=== PATIENT | male | born 1945 | race Caucasian/White ===

== ENCOUNTER 2018-04-17 11:41 | Emergency (ER) | payer OTHER ==
[~2018-04-17] VITALS: Ht 185.4 cm; Wt 68.0 kg
[~2018-04-17 11:41] MED LIST: ACETAMINOPHEN325 M1 PO; ACIDOPHILUS1 EACH PO; ADULT LOW DOSE81 MG PO; ADULT LOW DOSE81 MG PT; ADVAIR 250-501 EACH INH; AMOXICILLIN; ASPIRIN; AUGMENTIN 875875 MG PT; AVADART; AVODART; AVODART0.5 MG PO; AVODART0.5 MG PT; AZITHROMYCIN 2250 MG PO; CHLORPROMAZINE10 M1 PO; CIALIS5 MG PO; CIPRO500 MG PO; CLOPIDOGREL; CLOPIDOGREL PT; FISH OIL 1,0001 EAC5 PO; FISH OIL 1,0001 EAC5 PT; FISHOIL; FLOMAX0.4 MG PO; FLONASE 0.05%50 MCG NASAL; FLORANEX PACKET1 GM; FLOVENT HFA 1110 MCG IH; HYDROCODONE-AP1 EAC6 PO; IBUPROFEN 400400 M2 PO; LEVAQUIN 500 M500 M2 PO; LIDODERM 5%1 PATC1 TRANSDERM; LIPITOR 20 MG T20 M1 PO; LISINOPRIL PO; LISINOPRIL40 MG PO; LOPRESSOR; LOPRESSOR 12.12.5 MG PO; LOPRESSOR PT; MELATONIN1 MG PO; METFORMIN HCL500 MG PO; METOCLOPRAMIDE; MIRALAX255 GM PO; NASAL SPRAY30 ML INH; NEURONTIN 300300 M1 PO; NITROGLYCERIN0.4 MG SUBLING; NITROSTAT0.4 MG SL; NORVASC5 MG PO; PEPCID20 MG PO; PIOGLITAZONE15 MG PO; PLAVIX 75 MG TA75 M1 PO; PLAVIX 75 MG TA75 MG PO; PREDNISONE 20 M20 MG PO; PYRIDIUM200 MG PO; RAPAFLO4 MG PO; RAPAFLO8 MG PO; SIMVASTATIN40 MG PO; SINGULAIR; SINGULAIR 10 MG10 M1 PO; SINGULAIR 10 MG10 M1 PT; THORAZINE; ULTRAM 50MG TAB50 MG PO; VALIUM5 MG PO; VALTREX1000 MG PO; VESICARE 5 MG TA5 M1 PO; VYTORIN 10-401 EACH PO; ZETIA10 MG PO; ZOCOR; ZOCOR PO; ZOCOR80 MG PT; ZOFRAN PT; [UNRECOGNIZED DRUG - OTHER]
[2018-04-17] MEDS ORDERED: NORCO 5-325 TA1 EACH PO (12:06)
[2018-04-17] MEDS ORDERED: PREVNAR 13 SYR0.5 ML IM (12:06)
[2018-04-17] MEDS ORDERED: ZOCOR20 MG PO (12:06)
[2018-04-17] MEDS ORDERED: IBUPROFEN 800800 M1 PO (12:06)
[2018-04-17] MEDS ORDERED: DETROL1 MG PO (12:08)
[2018-04-17] MEDS ORDERED: TRAMADOL 50 MG50 MG PO (12:08)
[2018-04-17] MEDS ORDERED: ZETIA10 MG PO (12:08)
[2018-04-17] MEDS ORDERED: EMERGEN-C 500500 MG PO (12:09)
[2018-04-17] MEDS ORDERED: ASPIR 8181 MG PO (12:09)
[2018-04-17] MEDS ORDERED: ZINC30 M1 PO (12:10)
[2018-04-17] MEDS ORDERED: GREEN TEA250 MG PO (12:10)
[2018-04-17] MEDS ORDERED: COQ-10100 MG PO (12:10)
[2018-04-17] MEDS ORDERED: SAW PALMETTO 1160 MG PO (12:10)
[2018-04-17] MEDS ORDERED: HYDROCODON-ACE1 EAC7 PO (12:33)
[2018-04-17] MEDS ORDERED: PREDNISONE 2.52.5 M1 PO (12:33)
[2018-04-17 12:45] VITALS: BP 119/72
== END 2018-04-17 12:45 | disposition home or self-care (01) ==
LOC: M.ERS 11:41
DX: M13.862 Other specified arthritis, left knee (principal); M13.861 Other specified arthritis, right knee; Z85.840 Personal history of malignant neoplasm of eye; Z90.49 Acquired absence of other specified parts of digestive tract; Z95.5 Presence of coronary angioplasty implant and graft; Z88.5 Allergy status to narcotic agent

== ENCOUNTER 2018-06-02 16:28 | Inpatient (IN) | payer OTHER ==
[~2018-06-02] VITALS: Ht 182.9 cm; Wt 68.5 kg
[~2018-06-02 16:28] MED LIST changes: +ASPIR 8181 MG PO; +COQ-10100 MG PO; +DETROL1 MG PO; +EMERGEN-C 500500 MG PO; +GREEN TEA250 MG PO; +HYDROCODON-ACE1 EAC7 PO; +IBUPROFEN 800800 M1 PO; +NORCO 5-325 TA1 EACH PO; +PREDNISONE 2.52.5 M1 PO; +PREVNAR 13 SYR0.5 ML IM; +SAW PALMETTO 1160 MG PO; +TRAMADOL 50 MG50 MG PO; +ZINC30 M1 PO; +ZOCOR20 MG PO
[2018-06-02 16:38] VITALS: BP 170/78
[2018-06-02] MEDS ORDERED: PROZAC20 MG PO (16:43)
[2018-06-02] MEDS ORDERED: ONDANSETRON HCL4 M2 PO (16:44)
[2018-06-02] MEDS ORDERED: SINGULAIR 10 MG10 M1 PO (16:46)
[2018-06-02] MEDS ORDERED: NABUMETONE 750750 M1 PO (16:46)
[2018-06-02] MEDS ORDERED: ASPIR 8181 MG PO (16:50)
[2018-06-02 17:30] LABS: HEMATOCRIT 42.1 % (42.0-52.0); HEMOGLOBIN 14.3 gm/dL (14.0-18.0); MCH 31.3 pg (26.0-34.0); MCV 92.1 fL (80.0-100.0); NUCLEATED RBCS 0 /100WBC; PLATELET COUNT* 197 thou/uL (150-400); RBC 4.57 mil/uL (4.50-6.00); RDW-CV 13.8 % (10.5-14.5)
[2018-06-02 17:54] LABS: ALBUMIN 3.5 g/dL (3.4-5.0); ALKALINE PHOSPHATASE 94 U/L (46-116); ANION GAP 10 mmol/L (7-16); BUN 15 mg/dL (7-18); CALCIUM 8.7 mg/dL (8.5-10.1); CHLORIDE 105 mmol/L (98-107); CO2 23 mmol/L (21-32); CREATININE 1.2 mg/dL (0.6-1.3); GLUCOSE 89 mg/dL (70-99); LIPASE 330 U/L (73-393); NT-PRO BRAIN NAT PEPTIDE 188 pg/mL (<300); POTASSIUM 4.1 mmol/L (3.5-5.1); SGOT 27 U/L (15-37); SGPT 32 U/L (30-65); SODIUM 138 mmol/L (136-145); TOTAL BILIRUBIN 0.3 mg/dL (<0.1-1.0); TOTAL PROTEIN 6.5 g/dL (6.4-8.2); TROPONIN-I LEVEL <0.06 ng/mL (<0.06)
[2018-06-02 17:59] LABS: ABSOLUTE BASOPHILS 0.3 thou/uL (0.0-0.2); ABSOLUTE EOSINOPHILS 0.9 thou/uL (0.0-0.7); ABSOLUTE LYMPHOCYTES 1.5 thou/uL (0.8-5.3); ABSOLUTE MONOCYTES 0.2 thou/uL (0.0-1.2); ABSOLUTE NEUTROPHILS 2.2 thou/uL (1.6-8.1); PLATELET ESTIMATE ADEQUATE
[2018-06-02 18:38] LABS: URINE BILIRUBIN NEGATIVE (Negative); URINE BLOOD NEGATIVE (Negative); URINE CLARITY CLEAR; URINE COLOR YELLOW; URINE GLUCOSE-RANDOM NEGATIVE (Negative); URINE KETONES 1+ (Negative); URINE LEUKOCYTES-REFLEX NEGATIVE (Negative); URINE NITRITE-REFLEX NEGATIVE (Negative); URINE PROTEIN NEGATIVE (Negative); URINE UROBILINOGEN 0.2 E.U./dl (0.2-1.0)
[2018-06-02 19:54] VITALS: BP 153/100
[2018-06-02 21:00] VITALS: BP 153/87
[2018-06-03 05:25] LABS: HEMATOCRIT 39.6 % (42.0-52.0); HEMOGLOBIN 13.5 gm/dL (14.0-18.0); MCH 31.5 pg (26.0-34.0); MCHC 34.2 g/dL (28.0-37.0); MPV 8.3 fl. (7.2-11.1); RBC 4.3 mil/uL (4.50-6.00); RDW-CV 13.7 % (10.5-14.5); WBC 7.6 thou/uL (4.0-11.0)
[2018-06-03 05:51] LABS: CALCIUM 8.6 mg/dL (8.5-10.1); CREATININE 1.2 mg/dL (0.6-1.3); MAGNESIUM 1.8 mg/dL (1.8-2.4); POTASSIUM 4.4 mmol/L (3.5-5.1)
[2018-06-03 08:00] VITALS: BP 135/71
--- NOTE | 2018-06-03 13:18 | EKG ---
[place] [address] ELECTROCARDIOGRAM REPORT Name: DARBY ALFONSO V Room: [address] ADM IN .R.#: [id number] Admission: 06/02/18 Attend Phys: Teodoro Rodrigues MD Discharge: Date of : 41 Report #: [id number] THIS REPORT FOR: //name// [facility] ED Test Date: 2018-06-02 Test Time: 17:22:19 Pat Name: DARBY ALFONSO Department: Room: [facility] Gender: Fabricator Special Items: : 1945 Requested By: Arleth De Jesus Order Number: [id number] MD: Ren Johns Measurements Intervals [place] Rate: 71 P: 40 DE: 167 QRS: 60 QRSD: 102 T: 52 QT: 406 QTc: 442 Interpretive Statements Sinus rhythm Baseline wander in lead(s) V4,V5 Compared to ECG 09/16/2015 09:27:41 No significant changes Electronically Signed On 06-03-2018 13:18:29 [employer] BUSINESS ANALYST by Ren Johns [email or web address] <ELECTRONICALLY SIGNED> By: Ren Johns MD, [facility] 06/03/18 1318 1722 1722 Ren Johns MD, [facility] /EPI
[2018-06-03 16:41] VITALS: BP 117/61
[2018-06-04 08:00] VITALS: BP 168/77
[2018-06-04 12:25] VITALS: BP 143/73
[2018-06-04 12:45] VITALS: BP 138/81
[2018-06-04 12:50] VITALS: BP 138/81; BP 143/76
[2018-06-04 19:45] VITALS: BP 143/81
[2018-06-05 04:46] LABS: HEMATOCRIT 39.1 % (42.0-52.0); HEMOGLOBIN 13.4 gm/dL (14.0-18.0); MCH 31.5 pg (26.0-34.0); MCHC 34.2 g/dL (28.0-37.0); MCV 92.2 fL (80.0-100.0); MPV 9.2 fl. (7.2-11.1); RBC 4.24 mil/uL (4.50-6.00); RDW-CV 13.6 % (10.5-14.5); WBC 5.4 thou/uL (4.0-11.0)
[2018-06-05 05:06] LABS: ALBUMIN 3.1 g/dL (3.4-5.0); CALCIUM 8.6 mg/dL (8.5-10.1); CREATININE 0.9 mg/dL (0.6-1.3); MAGNESIUM 1.7 mg/dL (1.8-2.4); TOTAL BILIRUBIN 0.3 mg/dL (<0.1-1.0); TOTAL PROTEIN 5.9 g/dL (6.4-8.2)
[2018-06-05 09:00] VITALS: BP 127/81
[2018-06-05 15:42] VITALS: BP 127/81
[2018-06-05 16:03] VITALS: BP 127/81
== END 2018-06-05 18:00 | disposition home or self-care (01) | DRG 92 ==
LOC: M.ERS 16:28 → M.TBA-ER 18:01 → M.ORTHSURG 18:01
PROVIDERS: Family Medicine; Physician Assistant; ADMIT Internal Medicine
DX: G92 Toxic encephalopathy (principal); E44.1 Mild protein-calorie malnutrition; I25.10 Atherosclerotic heart disease of native coronary artery without angina pectoris; K21.9 Gastro-esophageal reflux disease without esophagitis; N40.0 Benign prostatic hyperplasia without lower urinary tract symptoms; G89.29 Other chronic pain; R26.9 Unspecified abnormalities of gait and mobility; E11.9 Type 2 diabetes mellitus without complications; I10 Essential (primary) hypertension; T50.995A Adverse effect of other drugs, medicaments and biological substances, initial encounter; Y92.89 Other specified places as the place of occurrence of the external cause; I25.2 Old myocardial infarction; Z95.5 Presence of coronary angioplasty implant and graft; Z86.73 Personal history of transient ischemic attack (TIA), and cerebral infarction without residual deficits; Z87.440 Personal history of urinary (tract) infections; Z85.840 Personal history of malignant neoplasm of eye; Z90.49 Acquired absence of other specified parts of digestive tract; Z79.82 Long term (current) use of aspirin; Z79.84 Long term (current) use of oral hypoglycemic drugs; Z79.899 Other long term (current) drug therapy; Z88.5 Allergy status to narcotic agent; Z68.20 Body mass index [BMI] 20.0-20.9, adult

== ENCOUNTER 2018-09-13 11:40 | Emergency (ER) | payer OTHER ==
[~2018-09-13] VITALS: Ht 185.4 cm; Wt 68.0 kg
[~2018-09-13 11:40] MED LIST changes: +NABUMETONE 750750 M1 PO; +ONDANSETRON HCL4 M2 PO; +PROZAC20 MG PO
[2018-09-13 12:53] LABS: ABSOLUTE BASOPHILS 0.1 thou/uL (0.0-0.2); ABSOLUTE EOSINOPHILS 0.5 thou/uL (0.0-0.7); ABSOLUTE MONOCYTES 0.6 thou/uL (0.0-1.2); ABSOLUTE NEUTROPHILS 5.7 thou/uL (1.6-8.1); BASOPHILS 0.9 %; EOSINOPHILS 6.4 %; HEMATOCRIT 41.9 % (42.0-52.0); HEMOGLOBIN 14.4 gm/dL (14.0-18.0); LYMPHOCYTES 12.3 %; MCH 31.4 pg (26.0-34.0); MCHC 34.3 g/dL (28.0-37.0); MCV 91.5 fL (80.0-100.0); MONOCYTES 8.1 %; MPV 8.7 fl. (7.2-11.1); NUCLEATED RBCS 0 /100WBC; PLATELET COUNT* 202 thou/uL (150-400); POLYS 72.3 %; RBC 4.58 mil/uL (4.50-6.00); RDW-CV 13.1 % (10.5-14.5); WBC 7.9 thou/uL (4.0-11.0)
[2018-09-13 12:56] LABS: CALCIUM 9.7 mg/dL (8.5-10.1); CREATININE 1.1 mg/dL (0.6-1.3); POTASSIUM 3.8 mmol/L (3.5-5.1)
[2018-09-13 13:07] LABS: APTT 24.5 Seconds (25.0-31.3)
[2018-09-13 14:56] VITALS: BP 170/92
== END 2018-09-13 14:56 | disposition short-term general hospital (02) ==
LOC: M.ERS 11:40
PROVIDERS: Nurse Practitioner Family
DX: S02.2XXA Fracture of nasal bones, initial encounter for closed fracture (principal); S06.5X0A Traumatic subdural hemorrhage without loss of consciousness, initial encounter; S01.21XA Laceration without foreign body of nose, initial encounter; S02.40DA Maxillary fracture, left side, initial encounter for closed fracture; I10 Essential (primary) hypertension; E11.9 Type 2 diabetes mellitus without complications; K21.9 Gastro-esophageal reflux disease without esophagitis; I25.10 Atherosclerotic heart disease of native coronary artery without angina pectoris; Z86.73 Personal history of transient ischemic attack (TIA), and cerebral infarction without residual deficits; Z88.5 Allergy status to narcotic agent; Z95.5 Presence of coronary angioplasty implant and graft; Z90.49 Acquired absence of other specified parts of digestive tract; W01.0XXA Fall on same level from slipping, tripping and stumbling without subsequent striking against object, initial encounter; Y92.89 Other specified places as the place of occurrence of the external cause; Y93.01 Activity, walking, marching and hiking; Y99.8 Other external cause status